=== PATIENT | female | born 1975 | race Caucasian/White ===

== ENCOUNTER 2021-11-18 14:10 | Outpatient (CLI) | payer OTHER, SELFPAY ==
--- NOTE | 2021-11-18 14:40 | CRLHL7_ITS ---
For Patients: As a result of the Century Cures Act, medical imaging exams and procedure reports are released immediately into your electronic medical record. You may view this report before your referring provider. If you have questions, please contact your health care provider. BILATERAL SCREENING MAMMOGRAM WITH COMPUTER-AIDED DETECTION AND TOMOSYNTHESIS TECHNIQUE: CC, MLO and Implant displaced views were obtained. These mammographic images have been obtained using full-field digital technique. These mammographic images were interpreted with the benefit of computer-aided detection. Breast Tomosynthesis was used in this interpretation. COMPARISON FILM: 10/03/20, 10/03/19, 06/28/18. FINDINGS: The breasts are extremely dense, which lowers the sensitivity of mammography IMPRESSION: There is no radiographic evidence for malignancy. ASSESSMENT: BI-RADS Category 2: Benign RECOMMENDATION: Routine screening mammogram in 1 year. A lay language report of this examination will be provided to the patient. Romaine Castellanos M.D. Diagnostic Radiologist [email or web address] [place]/Dictated by: Romaine Castellanos MD @ 11/19/2021 12:27:00 PM (Electronically Signed)
== END 2021-11-18 14:11 | disposition home or self-care (01) ==
LOC: MAMMO 14:11
PROVIDERS: PCP Family Medicine; Visit Provider Family Medicine
DX: Z12.31 Encounter for screening mammogram for malignant neoplasm of breast (principal); R92.2 Inconclusive mammogram
CPT/HCPCS: 77063; 77067

== ENCOUNTER 2022-01-07 09:41 | Outpatient (CLI) | payer OTHER, SELFPAY ==
[2022-01-07 13:51] LABS: SARS PCR* Negative SARS-CoV-2 (Negative)
== END 2022-01-07 09:42 | disposition home or self-care (01) ==
LOC: LONREF 09:41
PROVIDERS: PCP Family Medicine; Visit Provider Family Medicine
DX: Z20.822 Contact with and (suspected) exposure to COVID-19 (principal)
CPT/HCPCS: 87635

== ENCOUNTER 2022-01-08 10:10 | Outpatient (CLI) | payer OTHER, SELFPAY | END 2022-01-08 10:11 | disposition home or self-care (01) | LOC: OP CLINIC 10:10 | PROVIDERS: PCP Family Medicine; Visit Provider Surgery | DX: Z12.11 Encounter for screening for malignant neoplasm of colon (principal) | CPT/HCPCS: 45380; 88305; 99153; J1200; J2250; J2405; J3010 ==

== ENCOUNTER 2022-06-10 16:25 | Outpatient (CLI) | payer OTHER, SELFPAY ==
[2022-06-10 18:46] LABS: Chlamydia DNA Amplified* NOT DETECTED (No Detected); GC DNA Amplified* NOT DETECTED (No Detected)
== END 2022-06-10 16:26 | disposition home or self-care (01) ==
PROVIDERS: PCP Family Medicine; Visit Provider Registered Nurse
DX: Z11.3 Encounter for screening for infections with a predominantly sexual mode of transmission (principal)
CPT/HCPCS: 84443; 87491; 87591

== ENCOUNTER 2022-06-12 07:56 | Outpatient (CLI) | payer OTHER, SELFPAY | END 2022-06-12 07:57 | disposition home or self-care (01) | LOC: NFLDREF 07:57 | PROVIDERS: PCP Family Medicine; Visit Provider Registered Nurse | DX: D64.9 Anemia, unspecified (principal) | CPT/HCPCS: 82728; 83540; 83550 ==

== ENCOUNTER 2022-06-18 09:09 | Outpatient (CLI) | payer OTHER, SELFPAY ==
--- NOTE | 2022-06-18 09:15 | CRLHL7_ITS ---
For Patients: As a result of the Century Cures Act, medical imaging exams and procedure reports are released immediately into your electronic medical record. You may view this report before your referring provider. If you have questions, please contact your health care provider. INDICATION: dysmenorrhea COMPARISON: none TECHNIQUE: 2D zaragoza scale and color Doppler images were acquired of the pelvis using a transabdominal and transvaginal approach. FINDINGS: Sonographic images demonstrate a normal size and smooth outer contour of the uterus. Uterus measures 8.4 cm in length by 3.8 cm in AP diameter by 4.8 cm in transverse dimension. The myometrium has a heterogeneous echotexture. The endometrial lining is ill-defined and measures 4 mm in composite thickness. The right ovary measures 3.2 x 1.0 x 2.1 cm in size and the left ovary measures 4.0 x 1.3 x 1.0 cm. The ovaries demonstrate normal arterial and venous blood flow on color Doppler analysis. Moderate pelvic free fluid is present. IMPRESSION: Heterogeneity of the uterine echotexture without leiomyoma. Ill-defined endometrial stripe measuring 4 millimeters. No endometrial fluid. Dictated by Romaine Castellanos MD @ 06/18/2022 10:28:10 AM (Electronically Signed)
== END 2022-06-18 09:10 | disposition home or self-care (01) ==
LOC: US 09:09
PROVIDERS: PCP Family Medicine; Visit Provider Registered Nurse
DX: N94.6 Dysmenorrhea, unspecified (principal)
CPT/HCPCS: 76830; 76856

== ENCOUNTER 2023-06-09 16:19 | Outpatient (CLI) | payer OTHER, SELFPAY | END 2023-06-09 16:20 | disposition home or self-care (01) | PROVIDERS: PCP Family Medicine; Visit Provider Registered Nurse | DX: R53.83 Other fatigue (principal) | CPT/HCPCS: 82306; 84443 ==

== ENCOUNTER 2023-10-12 11:32 | Outpatient (CLI) | payer OTHER, SELFPAY | END 2023-10-12 11:33 | disposition home or self-care (01) | LOC: LKVREF 11:32 | PROVIDERS: PCP Family Medicine; Visit Provider Otolaryngology | DX: G25.81 Restless legs syndrome (principal) | CPT/HCPCS: 82728 ==

== ENCOUNTER 2023-10-18 08:51 | Outpatient (CLI) | payer OTHER, SELFPAY ==
--- NOTE | 2023-10-18 09:00 | CRLHL7_ITS ---
For Patients: As a result of the Century Cures Act, medical imaging exams and procedure reports are released immediately into your electronic medical record. You may view this report before your referring provider. If you have questions, please contact your health care provider. INDICATION: Chronic sinusitis. Migraine headaches. COMPARISON: None. TECHNIQUE: Noncontrast CT of the paranasal sinuses. FINDINGS: Bilateral maxillary sinuses are clear. The bilateral ostiomeatal complexes are patent. Slight nasal septal deviation the left measuring approximately 3 mm midline. Nasal cavity is clear. Frontal sinuses ethmoid air cells and sphenoid sinuses are clear. Bilateral sphenoid ostia patent. Mastoid air cells are clear. No facial fractures. Normal orbits bilaterally. Partially visualized intracranial contents are unremarkable. IMPRESSION: 1. Paranasal sinuses and mastoid air cells are clear. 2. Slight nasal septal deviation to the left Please note that all CT scans at this facility use dose modulation, iterative reconstruction, and/or weight-based dosing when appropriate to reduce radiation dose to as low as reasonably achievable. Dictated by Wilbert Lobo MD @ 10/18/2023 3:25:20 PM (Electronically Signed)
== END 2023-10-18 08:52 | disposition home or self-care (01) ==
PROVIDERS: PCP Family Medicine; Visit Provider Otolaryngology
DX: J32.9 Chronic sinusitis, unspecified (principal); J34.2 Deviated nasal septum
CPT/HCPCS: 70486

== ENCOUNTER 2023-11-17 20:56 | Outpatient (CLI) | payer OTHER, SELFPAY ==
--- NOTE | 2023-11-30 10:20 | W.PM.SLEEP ---
Sleep Study Details Details Interpreting Provider: Fabi Date of Sleep Study: 11/17/23 Sleep Study Details: STUDY TYPE:? Hospital-based attended ? BMI:? 20.7 ORDERING PROVIDER:? Fabi INDICATION:? Concern about sleep apnea ? SLEEP SUMMARY:? 392 minutes total sleep time RESPIRATORY SUMMARY:? AHI 6.6, supine 8.5, nonsupine 1.6. Supine REM AHI is 0 Low oxygen 89 PERIODIC LIMB MOVEMENTS OF SLEEP:? Index 10.4 index with arousal 0.2 CARDIAC:? Awake 71, asleep 69. No arrhythmias noted IMPRESSION:? Mild obstructive sleep apnea with supine position dependency. RECOMMENDATION: Treatment options include trial of positional therapy with avoidance of supine sleep, dental appliance or CPAP.
== END 2023-11-17 20:57 | disposition home or self-care (01) ==
LOC: SLEEP 20:57
PROVIDERS: PCP Family Medicine; Visit Provider Otolaryngology
DX: G47.33 Obstructive sleep apnea (adult) (pediatric) (principal)
CPT/HCPCS: 95810

== ENCOUNTER 2023-12-07 12:50 | Outpatient (CLI) | payer OTHER, SELFPAY ==
--- NOTE | 2023-12-07 13:00 | CRLHL7_ITS ---
For Patients: As a result of the Century Cures Act, medical imaging exams and procedure reports are released immediately into your electronic medical record. You may view this report before your referring provider. If you have questions, please contact your health care provider. BILATERAL SCREENING MAMMOGRAM WITH COMPUTER-AIDED DETECTION AND TOMOSYNTHESIS TECHNIQUE: CC, MLO and Implant displaced views were obtained. These mammographic images have been obtained using full-field digital technique. These mammographic images were interpreted with the benefit of computer-aided detection. Breast Tomosynthesis was used in this interpretation. COMPARISON FILM: 11/18/21, 10/03/20, 10/03/19. FINDINGS: The breasts are extremely dense, which lowers the sensitivity of mammography IMPRESSION: There is no radiographic evidence for malignancy. ASSESSMENT: BI-RADS Category 2: Benign RECOMMENDATION: Routine screening mammogram in 1 year. A lay language report of this examination will be provided to the patient. Romaine Castellanos M.D. Diagnostic Radiologist [email or web address] [place]/Dictated by: Romaine Castellanos MD @ 12/08/2023 11:09:00 AM (Electronically Signed)
== END 2023-12-07 12:51 | disposition home or self-care (01) ==
LOC: MAMMO 12:51
PROVIDERS: PCP Family Medicine; Visit Provider Family Medicine
DX: Z12.31 Encounter for screening mammogram for malignant neoplasm of breast (principal); R92.2 Inconclusive mammogram
CPT/HCPCS: 77063; 77067

== ENCOUNTER 2024-01-05 11:14 | Outpatient (CLI) | payer OTHER, SELFPAY | END 2024-01-05 11:15 | disposition home or self-care (01) | PROVIDERS: PCP Family Medicine; Visit Provider Family Medicine | DX: Z01.818 Encounter for other preprocedural examination (principal); G25.81 Restless legs syndrome | CPT/HCPCS: 80048; 82728 ==

== ENCOUNTER 2024-01-07 08:49 | Day surgery (SDC) | payer OTHER, SELFPAY ==
[2024-01-07] VITALS (12 sets, daily range): BP systolic 106–126; BP diastolic 59–101; PULSE 62–75; RESP 12–16; TEMP 36.2–37; O2SAT 96–100; BMI 21.6
[2024-01-07 09:14] LABS: Ur HCG Qualitative* Negative (Negative)
[2024-01-07] MEDS: LACTATED RINGERS 1000 ML 1,000 ML 100 ML IV (09:15)
[2024-01-07] MEDS: SODIUM CHLORIDE 0.9 % (FLUSH) 10 ML SYRINGE IVF (09:15)
[2024-01-07] MEDS: OXYMETAZOLINE 0.05% NASAL SPRAY 2 SPRAY NOSTRIL-B (09:20)
[2024-01-07] MEDS: SCOPOLAMINE 1 MG/3 DAY PATCH 1 PATCH TRANSDERMA (10:00)
[2024-01-07] MEDS: COCAINE HCL 4 % 4 ML SOLUTION NOSTRIL-B (10:33)
[2024-01-07] MEDS: BUPIVACAINE 0.5%/EPINEPHRINE 0.9 MG (30.9 ML) INJECTION (10:39)
[2024-01-07] MEDS: MUPIROCIN 1 GM PACKET 1 APPLIC TOPICAL (10:46)
[2024-01-07] MEDS: AYR SALINE NASAL GEL 1 APPLIC NOSTRIL-B (10:46)
--- NOTE | 2024-01-07 11:03 | W.ANESCHARGE ---
Anesthesia Charges Start Date/Time Anesthesia Start Date: 01/07/24 Anesthesia Start Time: 10:25 Stop Date/Time Anesthesia Stop Date: 01/07/24 Anesthesia Stop Time: 11:04
--- NOTE | 2024-01-07 11:08 | P.ENTPROC_ITS ---
Procedure Note Date of procedure: 01/07/24 Procedure: Preoperative diagnosis nasal headache nasal obstruction deviated septum right middle and inferior turbinate hypertrophy Postoperative diagnosis same Procedure nasal septoplasty, submucous partial resection right inferior turbinate Under general trach endotracheal anesthesia patient was prepped draped usual fashion the nose decongested injected. A right hemitransfixion incision was made. Left anterior posterior tunnels were created. A vertical incision was made with the cartilage and a right posterior tunnel created. The posterior deflected portions of septal bone and some cartilage were resected and a large piece trimmed and returned to the posterior intraseptal space. The hemitransfixion was closed with 2 4-0 chromic sutures. The right middle turbinate was hypertrophic was simply crushed with the [place] forceps. A stab incision was made in the anterior head of the right inferior turbinate a tunnel created with a Lucille dissector. The matt bone was outfractured a conservative anterior submucous resection performed. The Coblation was used for hemostasis and to cauterize intramurally along the inferior 10%. Silastic stents were then secured with 3-0 nylon and Merocel packing placed above the stents on each side. The patient procedure well was taken recovery in satisfactory condition. Blood loss was less than 15 mL. Surgeon: Darion Dunlap MD
--- NOTE | 2024-01-07 11:17 | W.ANESCHARGE ---
Anesthesia Charges Start Date/Time Anesthesia Start Date: 01/07/24 Anesthesia Start Time: 10:25 Stop Date/Time Anesthesia Stop Date: 01/07/24 Anesthesia Stop Time: 11:04
[2024-01-07] MEDS: IBUPROFEN 200 MG TABLET PO (11:49)
[2024-01-07] MEDS: OXYCODONE 5 MG TABLET PO (11:49)
== END 2024-01-07 12:24 | disposition home or self-care (01) ==
LOC: OR 08:50
PROVIDERS: Anesthesiology; PCP Family Medicine; Visit Provider Otolaryngology
PROC: (CPT 30520; principal; 2024-01-07 10:00)
DX: J34.2 Deviated nasal septum (principal); J34.3 Hypertrophy of nasal turbinates; R51.9 Headache, unspecified; J34.89 Other specified disorders of nose and nasal sinuses
CPT/HCPCS: 30520; 30140; 00160; 81025; A9270; J0330; J1100; J1200; J1630; J2250; J2405; J2704; J3010; J7120